=== PATIENT | female | born 1950 | race Caucasian/White ===

== ENCOUNTER → 2016-03-14 | Outpatient (CLI) | payer MEDICARE, BC ==
[~2016-03-14] MED LIST: ALENDRONATE SOD70 MG; BUPROPION HYDR150 M1; CLONAZEPAM1 MG; DILAUDID 2MG TAB2 MG PO; FOSAMAX PO; GABAPENTIN300 MG; MECLIZINE PO; MUCINEX DM 60 M1 TER PO; NYSTATIN100000 U/2; SUMATRIPTAN SU100 MG; TYLENOL 500MG500 MG PO; VENLAFAXINE HY150 MG PO; VITAMIN D 50,1.25 MG; WELLBUTRIN XL150 M2 PO; ZOLPIDEM TARTRAT5 MG
[2016-03-14 13:23] VITALS: BP 138/86
== END ==
LOC: AMSURD 12:20
DX: Z00.00 Encounter for general adult medical examination without abnormal findings (principal)

== ENCOUNTER → 2016-03-14 | Outpatient (CLI) | payer MEDICARE, BC ==
[2013-10-03 10:58] VITALS: BP 120/85
== END ==
LOC: EDSTATUS 10:35 → LAB 12:25
DX: Z00.00 Encounter for general adult medical examination without abnormal findings (principal); M85.89 Other specified disorders of bone density and structure, multiple sites; Z12.11 Encounter for screening for malignant neoplasm of colon; E53.8 Deficiency of other specified B group vitamins

== ENCOUNTER → 2016-03-16 | Outpatient (CLI) | payer MEDICARE, BC | LOC: RAD 10:22 | DX: Z13.820 Encounter for screening for osteoporosis (principal); M85.89 Other specified disorders of bone density and structure, multiple sites ==

== ENCOUNTER 2017-03-21 13:41 | Emergency (ER) | payer MEDICARE, BC ==
[2017-03-21] MEDS ORDERED: KETOROLAC10 MG PO (15:15)
[2017-03-21 16:02] VITALS: BP 144/78
== END 2017-03-21 15:25 | disposition home or self-care (01) ==
LOC: ED 13:41
DX: M46.1 Sacroiliitis, not elsewhere classified (principal); M25.551 Pain in right hip; Z88.2 Allergy status to sulfonamides; Z88.0 Allergy status to penicillin; Z88.7 Allergy status to serum and vaccine; Z88.8 Allergy status to other drugs, medicaments and biological substances; E78.5 Hyperlipidemia, unspecified; F41.9 Anxiety disorder, unspecified; F32.9 Major depressive disorder, single episode, unspecified; M79.7 Fibromyalgia
CPT/HCPCS: J1885

== ENCOUNTER → 2018-03-08 | Outpatient (CLI) | payer MEDICARE, BC ==
[~2018-03-08] MED LIST changes: +KETOROLAC10 MG PO
== END ==
LOC: LAB 16:37 → RAD 16:37
DX: M17.11 Unilateral primary osteoarthritis, right knee (principal); M25.462 Effusion, left knee

== ENCOUNTER → 2018-04-04 | Outpatient (CLI) | payer MEDICARE, BC | LOC: RAD 14:01 → MAMMO 14:30 | DX: M85.89 Other specified disorders of bone density and structure, multiple sites (principal) ==